=== PATIENT | female | born 1985 | race African-American/Black ===

== ENCOUNTER 2018-09-15 17:33 | Emergency (ER) | payer OTHER ==
[~2018-09-15] VITALS: Ht 160 cm; Wt 75.0 kg
[2018-09-15] MEDS ORDERED: IBUPROFEN 600 MG TAB PO ONE (20:00)
[2018-09-15 20:23] VITALS: BP 147/85
== END 2018-09-15 20:27 | disposition home or self-care (01) ==
LOC: M ED 17:33
DX: M25.462 Effusion, left knee (principal); T38.0X5A Adverse effect of glucocorticoids and synthetic analogues, initial encounter

== ENCOUNTER 2019-10-22 15:11 | Emergency (ER) | payer OTHER ==
[~2019-10-22] VITALS: Ht 160 cm; Wt 77.7 kg
[2019-10-22] MEDS ORDERED: NEXP1IMP SC (15:17)
[2019-10-22] MEDS ORDERED: ALBUTEROL 90 MCG/ACT 8GM HFA INHALER INH ONE (16:00)
[2019-10-22] MEDS ORDERED: ACETAMINOPHEN 325 MG TAB PO ONE (16:15)
--- NOTE | 2019-10-22 17:13 | REP ---
CHEST, PORTABLE: AP portable view of the chest is performed. There are no prior studies for comparison. There is no acute infiltrate or pulmonary edema. The heart is normal in size. 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 IMPRESSION: No evidence of acute infiltrate or pulmonary edema. Electronically Signed by Devonte Villarreal MD 10/22/2019 05:45 P
[2019-10-22] MEDS ORDERED: VENTAER INH (17:22)
[2019-10-22] MEDS ORDERED: MUCI1TAB16 PO (17:22)
[2019-10-22 17:51] VITALS: BP 133/90
[2019-10-22] MEDS ORDERED: AZIT-12 PO (19:00)
== END 2019-10-22 17:56 | disposition home or self-care (01) ==
LOC: M ED 15:11
DX: J06.9 Acute upper respiratory infection, unspecified (principal); Z79.3 Long term (current) use of hormonal contraceptives

== ENCOUNTER 2020-10-13 06:08 | Day surgery (SDC) | payer OTHER ==
[~2020-10-13] VITALS: Ht 160 cm; Wt 80.0 kg
[~2020-10-13 06:08] MED LIST: ACETAMINOPHEN *IV* 1,000 MG in IV 1 EA IV ONE; ACETAMINOPHEN 500 MG TAB PO ONE; AZIT-12 PO; LIDOCAINE 1% MDV 20ML VIAL SQ PRN; LR 1,000 ML IV ONE; MUCI1TAB16 PO; NEXP1IMP SC; SCOPOLAMINE 1MG TRANSDERMAL PATCH TOP ONE; VENTAER INH
[2020-10-13 06:45] LABS: HEMATOCRIT 38.8 % (36.0-47.0); HEMOGLOBIN 13.4 g/dl (12.0-15.5); MEAN CORPUSCULAR HEMOGLOBIN 29.5 pg (27.0-33.0); MEAN CORPUSCULAR HGB CONC 34.5 g/dl (32.0-36.5); MEAN CORPUSCULAR VOLUME 85.3 fl (80.0-96.0); PLATELET COUNT, AUTOMATED 185 10^3/uL (150-450); RED BLOOD COUNT 4.55 10^6/uL (4.00-5.40); WHITE BLOOD COUNT 6.1 10^3/uL (4.0-10.0)
[2020-10-13] MEDS ORDERED: SCOPOLAMINE 1MG TRANSDERMAL PATCH TOP SCH (07:00)
[2020-10-13 07:06] LABS: ALBUMIN 3.6 GM/DL (3.2-5.2); ALT/SGPT 18 U/L (12-78); BILIRUBIN,TOTAL 0.3 MG/DL (0.2-1.0); BLOOD UREA NITROGEN 9 MG/DL (7-18); CALCIUM LEVEL 7.9 MG/DL (8.5-10.1); CARBON DIOXIDE LEVEL 26 MEQ/L (21-32); CHLORIDE LEVEL 109 MEQ/L (98-107); CREATININE FOR GFR 1.01 MG/DL (0.55-1.30); GLOMERULAR FILTRATION RATE > 60.0 (>60); GLUCOSE, FASTING 104 MG/DL (70-100); POTASSIUM SERUM 3.6 MEQ/L (3.5-5.1); SODIUM LEVEL 140 MEQ/L (136-145); TOTAL PROTEIN 6.8 GM/DL (6.4-8.2)
[2020-10-13] MEDS ORDERED: VASOPRESSIN INJ 20 UNITS/ML VIAL As Ordered ONE (07:10)
[2020-10-13] MEDS ORDERED: METHYLENE BLUE 0.5% (5MG/ML) 10 ML AMP (PROVAYBLUE) As Ordered ONE (07:10)
[2020-10-13] MEDS ORDERED: BUPIVACAINE HCL 0.25% 30ML VIAL As Ordered ONE (07:40)
[2020-10-13] MEDS ORDERED: fentaNYL 250 MCG/5 ML INJECTION (J3010) As Ordered ONE (08:10)
[2020-10-13] MEDS ORDERED: SUGAMMADEX SODIUM 500 MG/5 ML VIAL (BRIDION) As Ordered ONE (08:10)
[2020-10-13] MEDS ORDERED: METOCLOPRAMIDE INJ 10MG/2ML VIAL (J2765 PER 1) As Ordered ONE (08:10)
[2020-10-13] MEDS ORDERED: ROCURONIUM BROMIDE 50 MG/5 ML VIAL As Ordered ONE (08:10)
[2020-10-13] MEDS ORDERED: propofoL 200 MG/20 ML VIAL As Ordered ONE (08:10)
[2020-10-13] MEDS ORDERED: MIDAZOLAM INJ 2MG/2ML VIAL (J2250 PER 1MG) As Ordered ONE (08:10)
[2020-10-13] MEDS ORDERED: ONDANSETRON 4MG/2ML VIAL As Ordered ONE (08:10)
[2020-10-13] MEDS ORDERED: dexameTHASONE 4 MG/ML 1ML VIAL (J1100 PER 1MG) As Ordered ONE (08:10)
[2020-10-13] MEDS ORDERED: ACETAMINOPHEN 1000MG 100ML IV BTL (OFIRMEV) (J0131 PER 10MG) As Ordered ONE (08:10)
[2020-10-13] MEDS ORDERED: LIDOCAINE 2% 100MG/5ML SDV (FOR ANES.) As Ordered ONE (08:10)
[2020-10-13] MEDS ORDERED: KETOROLAC 60MG 2ML VIAL As Ordered ONE (08:15)
[2020-10-13] MEDS ORDERED: LABETALOL 100MG/20ML VIAL As Ordered ONE (08:33)
[2020-10-13] MEDS ORDERED: HYDROmorphone HCL 2 MG/ML 1ML VIAL (J1170) As Ordered ONE (08:36)
[2020-10-13] MEDS ORDERED: SEVOFLURANE INHAL SOLN 250 ML BTL As Ordered ONE (09:39)
[2020-10-13] MEDS ORDERED: DESFLURANE 240 ML INHALANT As Ordered ONE (10:16)
[2020-10-13] MEDS ORDERED: SILVER NITRATE APPLICATOR As Ordered ONE (11:00)
[2020-10-13] MEDS ORDERED: ONDANSETRON 4MG/2ML VIAL IV PRN (11:30)
[2020-10-13] MEDS ORDERED: oxyCODONE 5MG TAB PO PRN ×2 (11:30→11:35)
[2020-10-13] MEDS ORDERED: fentaNYL 100 MCG/2 ML INJECTION (J3010) IV PRN (11:30)
[2020-10-13] MEDS ORDERED: LR 1,000 ML IV SCH ×2 (11:30→12:15)
[2020-10-13] MEDS ORDERED: ACETAMINOPHEN 325 MG TAB PO SCH (14:00)
--- NOTE | 2020-10-13 16:43 | ROOPDOC ---
[facility] Report Of Operation Report of Operation DATE OF PROCEDURE: 10/13/20 PREPROCEDURE DIAGNOSES: abnormal uterine bleeding, cervical contact bleeding, cervical dysplasia, stress urinary incontinence, cystocele, rectocele, obesity POSTPROCEDURE DIAGNOSES: abnormal uterine bleeding, cervical contact bleeding, cervical dysplasia, stress urinary incontinence, cystocele, rectocele, obesity PROCEDURE: nexplanon removal, robotic assisted total laparoscopic hysterectomy with bilateral salpingectomy, tension free transobturator tape placement, cystoscopy SURGEON: Brendan Beard DO GYM INSTRUCTOR: Joan Hale NP ANESTHESIA: general ESTIMATED BLOOD LOSS: Approximately 50mL. COMPLICATIONS: none REMARKS: none PROCEDURE NOTE: The risks, benefits, and alternatives of the procedure were discussed and written consent obtained. The patient received ancef, scopolamine and Tylenol prior to the procedure. She was taken to the OR where she was placed under general anesthesia. She was positioned in low lithotomy. A final time out was performed. The Nexplanon was palpated in the left arm and the site was prepped in a sterile fashion. A scalpel was used to make a submilimeter incision over the tip of the Nexplanon and it was grasped with a hemostat. It was confirmed to be in-tact by the provider and nursing. Gauze and a band-aid were used for hemostasis at the incision site. The arms were then tucked. The abdomen, vagina and perineum were prepped and draped in a sterile fashion. A dejesus was placed in the bladder. On operative speculum was placed in the vagina and the anterior lip of the uterus was tagged with 0-vicryl. The uterus was sounded to 8cm and a large cup v-care was placed. Care was taken to ensure no entrapment of the vaginal mucosa. The speculum was removed and gloves were changed. The area approx 15-20cm superior to the target anatomy was identified, this was approx. 2cm above the umbilicus. The area 10cm to the right, palmars point, and 8 and 16cm to the left were identified. All sites were injected with 0.25% Marcaine. Attempt was made to use the direct technique to enter the umbilical site but the peritoneum continued to advance away from the trocar preventing entry. Attempt was made for open entry and the incision was extended from 8mm to 2cm but the peritoneum had advanced too deep to grasp given adipose depth. The veres needle was then inserted at palmars point, intracavitary position was confirmed with the water drop test. The opening pressure was 5 mmHg. Direct entr y was then performed at palmars point. There was no trauma below the entry sites. 8mm incisions were then made at the remainder of the planned sites and 8mm robot ports placed under direct visualization. An anatomy survey was performed; there was a normal appearing liver, gallbladder and stomach edge. The appendix appeared normal. The uterus and ovaries appeared normal with exception of extensive adhesions of the bladder to the anterior uterus at the site of her scar. The ureters were identified to be well below the operative sites. The [employer] Yaw robot was then docked with the bipolar graspers in arm 1, the prograsp in arm 2, the 0 degree camera in arm 3, and the vessel sealer in arm 4. The bilateral fallopian tubes were grasped at the fimbriated ends and with the vessel sealer the mesosalpinx was transected until the cornua where they were truncated and removed via the assistant tennis professional port. The uteroovarian and round ligaments were transected with the vessel sealer. The anterior and rn admission leaves of the broad ligament were with blunt dissection and transected. The anterior leaf transection was carried anteriorly to create a bladder flap. Care was taken to transect the extensive bladder adhesions, this required dissection bluntly and with the monopolar sheers. The bilateral uterine arteries were skeletonized and cauterized then cut with the vessel sealer. The vessels w ere then dissected laterally from the cervix. The vaginal cup was clearly visible and the monopolar sheers were used to make an anterior colpotomy which was carried bilaterally until the uterus was truncated and removed via the vagina. The cuff was then closed with v-lock suture in a running fashion, care was taken to ensure incorporation of the bilateral uterosacral ligaments. The cuff was hemostatic and Dee Dee was applied. The robot was undocked and the pneumoperitoneum was released. The pneumoperitoneum was reinstated and the surgical sites remained hemostatic, it was then released. The ports were then removed under direct visualization. The umbilical port site fascia was closed with 0-vicryl in a running fashion. The port sites were then closed with 4-0 monocryl and dermabond. The vaginal cuff was palpated and had no defects and was visualized vaginally to have no bleeding. The dejesus was removed and cystoscopy was performed and the bilateral ureters had visible brisk flow. There was no bladder trauma. The dejesus was replaced. The area for exit of a transobturator sling was identified bilaterally at the level of the clitoris. A weighted speculum was placed and the area of the bladder neck was identified and elevated with loreta clamps x2. The mucosa was i njected with 1% lidocaine with epinepherine and incised with a scalpel. Metzambum scissors were then used to dissect the mucosa away from the vesicovaginal fascia bilaterally. The wing guard was then placed aiming toward the planned exit site. The sling was then placed using an in to out trocar ensuring to hug the inside of the obturator space. This was completed bilaterally. The mesh was ensure to be flush with the underling tissue and a 8mm dilator was used to ensure the mesh was tension free. Cystoscopy was performed and the bilateral ureters had brisk flow and there was no trauma to the bladder or urethra. The excess mesh at the groin was removed and the sites secured with dermabond. The mucosal inicision was reapproximated with 3-0 monocryl in a runn ing locking fashion and was hemostatic. The speculum was removed. The sponge, lap, and needle counts were correct x2. There were no complications. The patient was transferred to the PACU in stable condition. BRENDAN BEARD DO Oct 13, 2020 16:43
--- NOTE | 2020-10-13 16:52 | ROOPDOC ---
[facility] Report Of Operation Report of Operation DATE OF PROCEDURE: 10/13/20 PREPROCEDURE DIAGNOSES: abnormal uterine bleeding, symptomatic fibroid uterus, endometriosis, history of sexually transmitted infection POSTPROCEDURE DIAGNOSES: abnormal uterine bleeding, symptomatic fibroid uterus, endometriosis, history of sexually transmitted infection, bilateral tubal occlusion PROCEDURE: robotic assisted laparoscopic myomectomy SURGEON: Brendan Beard DO RISK ASSESSMENT ANALYST: Joan Hale NP ANESTHESIA: general ESTIMATED BLOOD LOSS: Approximately 150 mL. COMPLICATIONS: none REMARKS: none PROCEDURE NOTE: The risks benefits and alternatives of the procedure were discussed and written consent was obtained. Preoperatively the patient received Tylenol and scopolamine. She was taken to the OR where she was placed under general anesthesia. She was positioned in low lithotomy with her arms tucked. The abdomen and vagina and perineum were prepped and draped in a sterile fashion. A Dejesus was placed in the bladder. A final timeout was performed. An operative speculum was placed in the vagina and a single-toothed tenaculum used to grasp the anterior lip of the cervix. A Betable uterine manipulator was placed and the balloon inflated. The tenaculum was removed and the puncture sites were hemostatic with the silver nitrate. The speculum was removed. Gloves were changed. The area approximately 15-20 cm superior to the operative site was marked this was around 2 cm superior to the umbilicus. The area 10 cm right was marked. The areas of palmars point, and 8 and 16 cm to the left of the umbilical port site were marked. 0.25% Marcaine was injected into each of the sites. Penetrating towel clamps were used to elevate the abdominal wall. An 8mm incision was made at the supraumbilical site. The direct technique was used to enter the abdomen using a 8 mm robotic port and a 5 mm camera. The opening pressure was 5 mmHg and there was no trauma below the entry site. The marked port sites were then investigated intra-abdominally and were found to be clear of vasculature. 8 mm incisions were made at each of the sites and 8 mm robotic ports placed under direct visualization. An anatomy survey was performed; the liver and gallbladder edge appeared normal, stomach edge appeared normal, the diaphragm appeared normal. The fallopian tubes and ovaries were structurally normal but he left fallopian tube and ovary were adhered to the uterus. There were scattered gunpowder lesions likely endometriosis on the back of the uterus and in the cul-de-sac. A posterior fundal bulge was noted that palpated more firm than the surrounding myometrium. Placement was consistent with ultrasonic imaging representing the posterior fundal fibroid. The da Yaw robot was then docked in arm 1 with the single-tooth tenaculum, arm 2 the bipolar fenestrated graspers, in arm 3 the 0 camera, and arm 4 the mono polar melida. Dilute vasopressin was then injected in the linear fashion from anterior to posterior down the fibroid serosa. The monopolar sheers were used to make an incision down the injection site and fibroid appearing like tissue was noted beneath the serosal surface. After initial incision of the serosa the architecture of the suspected fibroid was noted to be degraded and had a poorly defined capsular planes. Using both blunt dissection and the assistance of monopolar cut and cautery the mass was dissected from the uterine myometrium. The surrounding uterine myometrium was also noted to have poor tissue quality and easily degraded with manipulation. The mass was placed in the posterior cul-de-sac. Mthylene blue was then injected into the uterus and it was confirmed that the uterine cavity was not entered. Notably the bilateral fallopian tubes had no fill or spill. The incision was closed with v-lock suture in 4 layers in a running fashion. The pelvis was then irrigated. Dee Dee was applied over the incision site. The surgical site was hemostatic. An endocatch bag was introduced and the mass was placed in the bag. The [employer] robot was undocked and the endocatch bag transferred to the umbilical port. The pneumoperitoneum was released. The umbilical port was extended to approx. 2.5cm and the endocatch bag was removed via the port. The pneumoperitoneum was reinstated and the surgical site remained hemostatic. The ports were then removed under direct visualization and were hemostatic. The umbilical port fascia was closed with 0-vicryl in a running fashion. The port sites were then reapproximated with 4-0 monocryl and dermabond. The dejesus and uterine manipulator were removed. The sponge, lap, and needle counts were correct x2 and the patient was transferred to the PACU in stable condition. There were no complications. BRENDAN BEARD DO Oct 13, 2020 16:52
[2020-10-13] MEDS ORDERED: IBUPROFEN 800 MG TAB PO SCH (18:00)
== END 2020-10-13 15:35 | disposition home or self-care (01) ==
LOC: M SDC 06:08
PROVIDERS: ATTEND Obstetrics & Gynecology
DX: D25.9 Leiomyoma of uterus, unspecified (principal); D64.9 Anemia, unspecified; J45.909 Unspecified asthma, uncomplicated; Z91.030 Bee allergy status; Z79.51 Long term (current) use of inhaled steroids
CPT/HCPCS: 36415; 58545; 80053; 81025; 85027; 86850; 86900; 86901; 88305; J0131; J1100; J1170; J1885; J2250; J2405; J2765; J3010; Q9968; S2900